=== PATIENT | female | born 1950 | race Caucasian/White ===

== ENCOUNTER 2024-07-30 13:53 | Outpatient (AMB) | payer OTHER, SELFPAY ==
--- OUTSIDE RECORDS SUMMARY | 2024-07-30 13:55 | XMS_ITS | Continuity of Care Document ---
Author Organization [place] - [facility], [facility] Address [address] [place] [address] Care Team Providers Care Food Service Utility Worker Name Role Phone HONEY HUSAM Primary Care Provider Assessment Encounter Date Assessment Date Assessment LastModified by Organization Details LastModified Time 07/21/2024 07/21/2024 Patient presents for evaluation of right ear blockage ongoing since March. Physical exam reveals diminished mobility on pneumatic otoscopy. Tympanometry demonstrates mild negative air pressure on that side. Reviewed pathophysiology of Eustachian tube dysfunction on diagram and patient/parent understands. Recommend trial of intranasal steroid spray; risks, rationale, and crossed-hand application technique reviewed and all questions were answered. Audiometric testing demonstrates high frequency hearing loss with excellent speech recognition. We reviewed that amplification is not currently indicated but she should start to have annual audiometric testing. For the lips, reviewed consistent with cheilitis due to increased salivation during sleep which is in turn due to her edentulous status. Not currently infected. Recommend against mupirocin and camphor ointment as the former is not currently needed and the latter is drying to the skin. Recommend Vaseline or Aquaphor before bed. [email or web address] Not available 07/21/2024 16:34:52 Plan of Treatment Reminders Order Date Submit Date Provider Last Modified By Organization Details Last Modified Time Details Appointments None record ed. Lab None record ed. Referral None record ed. Procedures None record ed. Surgeries None record ed. Imaging None record ed. Medication Orders None record ed. Patient TargetsNo targets recorded. Patient InstructionsNo instructions recorded. Reason for Referral None Reported. Results Created Date Observation Date Name Description Value Unit Range Abnormal Flag Note LastModifiedBy Organization Detail LastModifiedTime 07/22/20 24 audio gram No observ ation record ed. BARCODE Not Available 2023 13:27:00 Result Notes None recorded. Problems Name Problem SNOMED Code Status Onset Date Resolution Date Notes Provider Name and Address Organization Details Recorded Time Sensorineural hearing loss of bilateral ears 030298536 Active 2023 LISSET WOODSON MA, CCC-A [address] [facility], [place], [address], [facility] - [facility] 4 16:07:40 Angular cheilitis 233328263 Active 2023 JORGE ALBERTO SALINAS PA-C [address] [facility], [place], [address], [facility] 4 16:33:40 Problem Notes None recorded. Procedures Surgical History Date Name Laterality Status Provider Name and Address Organization Details Recorded Time 07/21/2024 Comp Audio with Tymps (53159 & 34937) completed LISSET WOODSON MA, [facility] [address] [facility] [address], [place], [address], [facility] 07/21/2024 16:07:50 Imaging Results None recorded. Procedure Notes None recorded. Medical Equipment None Reported. Allergies Allergen ID Allergen Name Allergen Category Reaction Reaction Severity Criticality Documentation Date Start Date Code Code System Note Provider Name and Address Organization Details Recorded Time 552269 Non-stero idal anti-infl ammatory agent (product) medicatio n Not available Not available Not available 07/21/2024 72731 005 SNOMED Martha fragoso [place] - [facility] 4 16:16:51 679449 aspirin medicatio n Not available Not available Not available 07/21/2024 1191 RxNorm Martha fragoso [place] - [facility] 16:16:59 319766 Substance with sulfonami de structure and antibacte rial mechanism of action (substanc e) medicatio n Not available Not available Not available 07/21/2024 50444 8003 SNMARIELA fragoso [place] - [facility] 16:17:55 Medications Name Sig Start Date Stop Date Status Note LastModified by Organization Details LastModified Time methocarbam ol 500 mg tablet 07/21 completed Not Available Not Available Not Available Iron (ferrous sulfate) 325 mg (65 mg iron) tablet Take 1 tablet every day by oral route. active Not Available Not Available No t Available alendronate 70 mg tablet active Not Available Not Available Not Available Klor-Con 20 mEq oral packet TAKE 1 PACKET BY MOUTH DAILY 07/21 completed Not Available Not Available Not Available methotrexat e sodium 25 mg/mL injection solution 07/21 completed Not Available Not Available Not Available omeprazole 40 mg capsule,del ayed release active Not Available Not Available Not Available triamcinolo ne acetonide 0.1 % topical cream 07/21 completed Not Available Not Available Not Available ketorolac 0.5 % eye drops INSTILL 1 DROP INTO BOTH EYES THREE TIMES A WEEK DIRECTED 07/21 completed Not Available Not Available Not Available baclofen 10 mg tablet 07/21 completed Not Available Not Available Not Available levothyroxi ne 50 mcg tablet active Not Available Not Available Not Available folic acid 1 mg tablet TAKE 1 TABLET BY MOUTH EVERY DAY active Not Available Not Available No t Available codeine 10 mg-guaifene sin 100 mg/5 mL oral liquid TAKE 5 ML BY MOUTH THREE TIMES DAILY FOR UP TO 10 DAYS NEEDED FOR COUGH 07/21 completed Not Available Not Available Not Available hydrochloro thiazide 25 mg tablet TAKE 1 TABLET BY MOUTH DAILY 07/21 completed Not Available Not Available Not Available Lipitor 10 mg tablet Take 1 tablet every day by oral route. active Not Available Not Available No t Available fluticasone propionate 50 mcg/actuati on nasal spray,suspe nsion active Not Available Not Available Not Available naproxen 500 mg tablet 07/21 completed Not Available Not Available Not Available amoxicillin 875 mg-potassiu m clavulanate 125 mg tablet TAKE 1 TABLET BY MOUTH TWICE DAILY FOR 7 DAYS 07/21 completed Not Available Not Available Not Available oxycodone 5 mg tablet TAKE 1 TABLET BY MOUTH EVERY 6 HOURS NEEDED FOR SEVERE PAIN. 07/21 completed Not Available Not Available Not Available duloxetine 30 mg capsule,del ayed release 07/21 completed Not Available Not Available Not Available BD Insulin Syringe Micro-Fine 1 mL 28 gauge x 1/2 INJECT ONCE WEEKLY active Not Available Not Available No t Available methotrexat e (PF) 12.5 mg/0.4 mL subcutaneou s auto-inject or Inject 0.4 mL every week by subcutane ous route. active Not Available Not Available No t Available Tremfya 100 mg/mL subcutaneou s auto-inject or INJECT 100MG UNDER THE SKIN EVERY 8 WEEKS 07/21 completed Not Available Not Available Not Available Paxlovid 300 mg (150 mg x 2)-100 mg tablets in a dose pack TK 2 NIRMATREL VIR TS AND 1 RITONAVIR T TOGETHER PO FOR 5 DAYS 07/21 completed Not Available Not Available Not Available Vitals None Recorded Social History None recorded. Functional Status None recorded. Mental Status None recorded. Family History Nothing Reported. Medical History No medical history recorded. Gynecological HistoryNo gynecological history recorded. Obstetrics History GPAL:G 0 P 0 0 0 0 Past Encounters Encounter ID Performer Location Encounter Start Date Encounter Closed Date Diagnosis/Indication Diagnosis SNOMED-CT Code Diagnosis ICD10 Code [id number] JORGE ALBERTO SALINAS PA-C [facility] [address] [address] 07/21/2024 15:27:14 07/21/2024 16:30:03 Sensorineural hearing loss of bilateral ears 576599863 H90.3 Angular cheilitis 272590 005 K13.0 Health Concerns Section Related Observation LastModified by Organization Detai ls LastModified Time None Recorded Concern Status LastModified by Organization Details LastModified Time None Recorded Payers Encounter Date Sequence Insurance Name Policy Number Policy Bui Covered Member ID Bui Member ID Guarantor Name 07/21/2024 1 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 She reports 04/11/24 she fell off her porch and hit the right side of the head. She had an intracranial hemmorrhage that was treated. Since that time the right ear has felt constantly blocked. History of hearing loss, has hearing aids but does not know where they are. It has improved since onset. Initially she had hearing loss and a sensation of a ball in the ear. That has improved since some cerumen came out of the ears. Both ears seem to have poor hearing. There is no otalgia and no otorrhea. She has very rare tinnitus, nonpulsatile and well tolerated. She reports a history of tympanoplasty on the left ear in the 1969's. She takes fluticasone for nasal congestion. Also reports the sides of the mouth are red and she is concerned for impetigo, States it started on the left side due to drooling during sleep. Got worse once she had her remaining teeth removed, now affecting the right side as well. There were some white bumps in the red area previously and she started a course of mupirocin. JORGE ALBERTO SALINAS PA-C [address] [place] [address], [address], [place] - [facility] 07/21/2024 16:35:05 OBGyn Episode No OBEpisode recorded.
--- OUTSIDE RECORDS SUMMARY | 2024-07-30 13:55 | XMS_ITS | Data Portability ---
Author Organization [place] - [facility], Allergy Address [address] [facility] [address] [place] [address] Care Team Providers Care Pin Machine Operator Name Role Phone ANGELIFRANSISCOVIKYJANIHUSAM Primary Care Provider Assessment Encounter Date Assessment [...] Abnormal Flag Note LastModifiedBy Organization Detail LastModifiedTime 12/04/20 24 audio gram No observ ation record ed. BARCODE Not Available 2023 13:27:00 Result Notes None recorded. Problems Name Problem SNOMED Code Status Onset Date Resolution Date Notes Provider Name and Address Organization Details Recorded Time Sensorineural hearing loss of bilateral ears 170023571 Active 2023 LISSET WOODSON MA, CCC-A [address] [facility], [place], [address], [facility] - [facility] 16:07:40 Angular cheilitis 349959222 Active 2023 JORGE ALBERTO SALINAS PA-C [address] [facility], [place], [address], [facility] - [facility] 16:33:40 Problem Notes None recorded. Procedures Surgical History Date Name Laterality Status Provider Name and Address Organization Details Recorded Time 07/21/2024 Comp Audio with Tymps (73922 & 21986) completed LISSET WOODSON MA, CCC-A [address] [facility] [address], [place], [address], [facility] 07/21/2024 16:07:50 Imaging Results Imaging Date Name Status LastModified by Organiz ation Details LastModified Time 07/22/2024 audiogram completed BARCODE Information no t available 07/22/2024 13:27:00 Procedure Notes None recorded. Medical Equipment None Reported. Allergies Allergen ID Allergen Name Allergen Category Reaction Reaction Severity Criticality Documentation Date Start Date Code Code System Note Provider Name and Address Organization Details Recorded Time 465644 Non-stero idal anti-infl ammatory agent (product) medicatio n Not available Not available Not available 07/21/2024 65063 005 SNOMED Martha fragoso [place] - [facility] 16:16:51 398804 aspirin medicatio n Not available Not available Not available 07/21/2024 1191 RxNorm Martha fragoso MA [facility] 16:16:59 899191 Substance with sulfonami de structure and antibacte rial mechanism of action (substanc e) medicatio n Not available Not available Not available 07/21/2024 90488 8003 SNOMED Martha fragoso [place] - [facility] 4 16:17:55 Medications Name Sig Start Date Stop [...] Diagnosis/Indication Diagnosis SNOMED-CT Code Diagnosis ICD10 Code [id number] JORGE ALBERTO SALINAS PA-C [facility] [address] [address] 07/21/2024 15:27:14 07/21/2024 16:30:03 Sensorineural hearing loss of bilateral ears 638058873 H90.3 Angular cheilitis 918482 005 K13.0 Health Concerns Section Related Observation LastModified by Organization Detai ls LastModified Time None Recorded Concern Status LastModified by Organization Details LastModified Time None Recorded Advance Directives Directive None Recorded Payers Encounter Date Sequence Insurance Name Policy Number Policy Bui Covered Member ID Bui Member ID Guarantor Name 07/21/2024 1 [facility] (MEDICARE REPLACEMENT/A DVANTAGE - HMO) [id number] Natalia Plunkett [id number] Natalia Plunkett Notes Date Note Type Note Provider Name and Address Organization Details Recorded Time 07/21/2024 text/html 73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 JORGE ALBERTO SALINAS PA-C [address] [place] [address], [address], [facility] - [facility] 07/21/2024 16:35:05 OBGyn Episode No OBEpisode recorded.
[2024-07-30 14:07] VITALS: BP 140/76; PULSE 88; O2SAT 98; BMI 25.4
--- NOTE | 2024-07-30 14:07 | A.OFFVIS_ITS ---
Vital Signs 07/30/24 14:07 Height 5 ft 3 in Weight 143 lb 4.807 oz BMI 25.4 BP 140/76 H Blood Pressure Location Lt brachial Position Sitting Pulse 88 Pulse Source Pulse Oximeter Pulse Oximetry (%) 98 Oxygen Delivery Method Room Air Intake Visit Reasons: PSA Intake Note: Patient presents for follow up on psoriatic arthritis Allergies sulfamethoxazole [From Bactrim] Allergy (Mild, Verified 07/30/24 14:11) Unknown trimethoprim [From Bactrim] Allergy (Mild, Verified 07/30/24 14:11) Unknown aspirin Adverse Reaction (Verified 07/30/24 14:11) bleeding HPI HPI PSA: Details: She is experiencing bilateral knee pain and swelling. She is overdue for her cortisone injections. She continues to take methotrexate subcutaneous injections weekly and folic acid daily. No acute joint swelling. No recent infections. [facility] Medical History (Updated 07/30/24 @ 14:45 by Víctor Lovell MD) Osteopenia Chronic pain Anxiety Depression Cataract Psoriatic arthritis Surgical History (Updated 07/30/24 @ 14:18 by Dominique Recinos CMA) History of cataract surgery Social History (Updated 07/30/24 @ 14:20 by Dominique Recinos CMA) Alcohol intake: current Alcohol intake frequency: holidays/special occasions only Patient Tobacco Use Status: Never used Tobacco Review of Systems Const All systems reviewed & are unremarkable except as noted in HPI and below Physical Exam Vital Signs: Last Vital Signs Pulse 88 07/30/24 14:07 BP 140/76 H 07/30/24 14:07 Pulse Ox 98 07/30/24 14:07 Oxygen Delivery Method Room Air 07/30/24 14:07 BMI result Body Mass Index 25.4 Const Other: General: Comfortable CVS: RRR Respiratory: clear to auscultation bilaterally. Good respiratory effort Skin: No lesions seen MSK: No synovitis, she has tenderness of bilateral knees with moderate joint effusions. Good range of motion of upper extremities. Limited full flexion of bilateral knees. Office Procedures AMB Joint Injection/Aspiration Joint Injection/Aspiration Secondary Site: right knee Prep: site was prepped using aseptic technique Injected: 40 mg of, Kenalog, with 1 mL of and 1% plain lidocaine Procedure: The patient tolerated the procedure well Coding 02736 - Large joint Additional procedure code (CPT) needed (Modifier for bilateral procedure needed) AMB Joint Injection/Aspiration Joint Injection/Aspiration Primary Site: left knee Prep: site was prepped using aseptic technique Injected: 40 mg of, Kenalog, with 1 mL of and 1% plain lidocaine Procedure: The patient tolerated the procedure well Coding 45916 - Large joint Additional procedure code (CPT) needed (Modifier for bilateral procedure needed) Office Meds Kenalog 40 mg/mL suspension for injection Performing Provider: Víctor Lovell MD Performing Location: [facility] Administered by: Víctor Lovell MD on 07/30/24 14:46 Dose Route Admin Location Dispensed Lot Number Expiration Date [facility] [place] Ophthalmologist 40 mg intra-articular [place] [id number] [employer] lidocaine (PF) 10 mg/mL (1 %) injection solution Performing Provider: Víctor Lovell MD Performing Location: [facility] Administered by: Víctor Lovell MD on 07/30/24 14:46 Dose Route Admin Location Dispensed Lot Number Expiration Date [facility] [place] Ophthalmologist 10 mg Infiltration 2 mL [id number] [facility] Kenalog 40 mg/mL suspension for injection Performing Provider: Víctor Lovell MD Performing Location: [facility] Administered by: Víctor Lovell MD on 07/30/24 14:48 Dose Route Admin Location Dispensed Lot Number Expiration Date [facility] [place] Ophthalmologist 40 mg intra-articular 1 mL AP [id number] [employer] lidocaine (PF) 10 mg/mL (1 %) injection solution Performing Provider: Víctor Lovell MD Performing Location: [facility] Administered by: Víctor Lovell MD on 07/30/24 14:48 Dose Route Admin Location Dispensed Lot Number Expiration Date [facility] [place] Ophthalmologist 10 mg Infiltration 2 mL [id number] [facility] Assessment & Plan Assessment & Plan (1) Psoriatic arthritis: Comment: Controlled on monotherapy with methotrexate. Code(s): L40.50 - Arthropathic psoriasis, unspecified Category: Medical Plan: Continue methotrexate 22.5 mg once weekly Continue folic acid 1 mg daily Labs for disease and drug monitoring and high-risk medication ordered [facility] Return to clinic in 3 months (2) Other intermediate (current) drug therapy: Code(s): Z79.899 - Other intermediate (current) drug therapy Category: Medical Plan: See above (3) Osteoarthritis of knees, bilateral: Comment: Pain and swelling is uncontrolled. Code(s): M17.0 - Bilateral primary osteoarthritis of knee Category: Medical Qualifiers: Osteoarthritis type: primary Qualified Code(s): M17.0 - Bilateral primary osteoarthritis of knee Plan: Bilateral knee cortisone injections were given this visit. Return to clinic 3 months Orders: Orders Alanine Aminotransferase Today Z79.60 - manager terminal (current) use of unspecified immunomodulators and immunosuppressants Complete Blood Count Auto Diff Today Z79.60 - [facility] (current) use of unspecified immunomodulators and immunosuppressants Hepatitis B,C Profile Today L40.50 - Arthropathic psoriasis, unspecified T Spot TB Today L40.50 - Arthropathic psoriasis, unspecified Erythrocyte Sedimentation Rate Today L40.50 - Arthropathic psoriasis, unspecified C Reactive Protein Today L40.50 - Arthropathic psoriasis, unspecified Aspartate Amino Transferase Today Z79.60 - manager terminal (current) use of unspecified immunomodulators and immunosuppressants Creatinine Today Z79.60 - manager terminal (current) use of unspecified immunomodulators and immunosuppressants AMB Joint Injection/Aspiration Today M17.0 - Bilateral primary osteoarthritis of knee AMB Joint Injection/Aspiration Today M17.0 - Bilateral primary osteoarthritis of knee Medications: New syringe with needle (BD Tuberculin Slip-Tip) As directed 100 ea 0RF Kenalog (triamcinolone acetonide) 40 mg intra-articular ONCE 1 mL 0RF NS M17.0 - Bilateral primary osteoarthritis of knee lidocaine (PF) 10 mg Infiltration ONCE 1 mL 0RF M17.0 - Bilateral primary osteoarthritis of knee Coding Level of Care Code Est Pt Level 4 (55170) Complex EM visit Add On G2211 Diagnoses Psoriatic arthritis L40.50 Other intermediate (current) drug therapy Z79.899 Primary osteoarthritis of both knees M17.0 Osteoarthritis type: primary CPT Codes Coding - 99030 Large joint: 32237 - Large joint ([id number]) Coding - 99794 Large joint: 69740 - Large joint ([id number])
== END 2024-07-30 14:49 | disposition home or self-care (01) ==
PROVIDERS: PCP Internal Medicine; Visit Provider Internal Medicine Rheumatology
DX: L40.50 Arthropathic psoriasis, unspecified (principal); Z79.899 Other long term (current) drug therapy; M17.0 Bilateral primary osteoarthritis of knee
CPT/HCPCS: 20610; 99214

== ENCOUNTER → 2024-07-30 13:53 | Outpatient (BNVA) | payer OTHER, SELFPAY | PROVIDERS: PCP Internal Medicine; Visit Provider Internal Medicine Rheumatology | DX: L40.50 Arthropathic psoriasis, unspecified (principal); M17.0 Bilateral primary osteoarthritis of knee; Z79.631 Long term (current) use of antimetabolite agent | CPT/HCPCS: 20610; J2003; J3300 ==

== ENCOUNTER 2024-08-03 12:10 | Outpatient (REF) | payer MEDICARE, SELFPAY ==
[2024-08-03 13:34] LABS: MANUAL DIFF FLAG NO
[2024-08-03 13:49] LABS: Basophils Percent Auto 0.4 % (0-2); Eosinophils Absolute Auto 0.2 X10*3/uL (0.0-0.4); Eosinophils Percent Auto 4.3 % (0-4); Hematocrit 40.9 % (37.0-47.0); Hemoglobin 13.8 g/dl (12.0-16.0); Imm Gran Abs Auto 0.02 X10*3/uL (0.00-0.03); Imm Gran Pct Auto 0.4 % (0.0-0.4); Lymphocytes Absolute Auto 0.7 X10*3/uL (1.2-4.9); Lymphocytes Percent Auto 12.1 % (20-40); Mean Corpuscular HGB Conc 33.7 g/dl (31.0-35.0); Mean Corpuscular Hemoglobin 32.2 pg (27.0-33.0); Mean Corpuscular Volume 95.3 fL (80.0-98.0); Mean Platelet Volume 8.5 fL (9.4-12.3); Monocytes Absolute Auto 0.2 X10*3/uL (0.1-1.2); Monocytes Percent Auto 4.2 % (2-11); Neutrophils Absolute Auto 4.4 x10*3/uL (2.0-8.3); Neutrophils Percent Auto 78.6 % (45-73); Platelet Count 348 X10*3/uL (160-400); Red Blood Count 4.29 X10*6/uL (4.20-5.50); Red Cell Distribution Width 14.1 % (11.0-16.0); White Blood Count 5.5 X10*3/uL (4.8-10.8)
[2024-08-03 14:32] LABS: Erythrocyte Sedimentation Rate 6 MM/HR (0-20)
[2024-08-03 14:34] LABS: Aspartate Amino Transferase 62 U/L (5-31); C Reactive Protein < 0.04 mg/dL (< or = 0.50); Estimated Glomerular Filt Rate > 60
[2024-08-03 14:53] LABS: Alanine Aminotransferase 74 U/L (0-31)
[2024-08-04 08:12] LABS: HBc Num1 0.11 S/CO (0.00-0.79); HBsAGNum1 0.41 S/CO (0.00-0.99); Hepatitis B Core Antibody Nonreactive (Nonreactive); Hepatitis B Surface Antigen Negative (Negative); ~HepC Num1 0.06 S/CO (0.00-0.79); ~Hepatitis B Surface Antibody NONREACTIVE (Nonreactive); ~Hepatitis C Antibody Nonreactive (Nonreactive)
[2024-08-06 04:43] LABS: TS Negative Control Passed; TS Panel A 0; TS Panel B 0; TS Positive Control Passed; TSpotTB Negative (Negative)
== END 2024-08-03 12:11 | disposition home or self-care (01) ==
LOC: HO.HMGCLDS 12:10
PROVIDERS: Visit Provider Internal Medicine Rheumatology
DX: L40.50 Arthropathic psoriasis, unspecified (principal); Z79.60 Long term (current) use of unspecified immunomodulators and immunosuppressants
CPT/HCPCS: 36415; 82565; 84450; 84460; 85025; 85652; 86140; 86481; 86704; 86706; 86803; 87340